=== PATIENT | female | born 1965 | race Caucasian/White ===

== ENCOUNTER → 2018-05-09 | Outpatient (CLI) | payer OTHER ==
[2018-05-09 17:57] LABS: HEMATOCRIT 48.9 % (36.0-47.0); HEMOGLOBIN 15.8 g/dl (12.0-15.5); MEAN CORPUSCULAR HGB CONC 32.3 g/dl (32.0-36.5); MEAN CORPUSCULAR VOLUME 96.1 fl (80.0-96.0); PLATELET COUNT, AUTOMATED 257 10^3/uL (150-450); RED BLOOD COUNT 5.09 10^6/uL (4.00-5.40); RED CELL DISTRIBUTION WIDTH 14.3 % (11.5-14.5)
[2018-05-09 18:08] LABS: ADD MANUAL DIFFER YES; DIFF SLIDE NUMBER 138; POSITIVE DIFF POS FLAG; WHITE BLOOD COUNT 16.2 10^3/uL (4.0-10.0)
[2018-05-09 20:06] LABS: ATYPICAL LYMPH 11 % (0-5); EOSINOPHILS 1 % (0-5); LYMPHOCYTES 36 % (16-52); MONOCYTES 13 % (0-8); NEUTROPHILS 39 % (35-75)
[2018-05-09 20:07] LABS: PLATELET ESTIMATE NORMAL (NORMAL)
== END ==
LOC: M ADAMS 11:10
DX: J20.9 Acute bronchitis, unspecified (principal)
CPT/HCPCS: 85025